=== PATIENT | female | born 1945 | race Hispanic/Latino ===

== ENCOUNTER 2017-06-19 08:43 | Day surgery (SDC) | payer OTHER, MEDICARE ==
[~2017-06-19] VITALS: Ht 152.4 cm; Wt 57.8 kg
[~2017-06-19 08:43] MED LIST: SODIUM CHLORIDE 0.9% 1000ML 1,000 ML IV ONE
[2017-06-19 08:51] VITALS: BP 197/73
[2017-06-19] MEDS ORDERED: MULT1TAB70 PO (09:09)
[2017-06-19] MEDS ORDERED: ASPI-1197 PO (09:09)
[2017-06-19 10:40] VITALS: BP 89/40
== END 2017-06-19 11:20 | disposition home or self-care (01) ==
LOC: DAH 08:43
PROVIDERS: ATTEND Internal Medicine Gastroenterology
DX: Z12.11 Encounter for screening for malignant neoplasm of colon (principal); D12.5 Benign neoplasm of sigmoid colon; K57.30 Diverticulosis of large intestine without perforation or abscess without bleeding; E78.5 Hyperlipidemia, unspecified; M19.90 Unspecified osteoarthritis, unspecified site; Z98.890 Other specified postprocedural states
CPT/HCPCS: 45385; 88305; A4606; J7030